=== PATIENT | female | born 2000 | race Caucasian/White ===

== ENCOUNTER 2022-09-24 12:29 | Outpatient (CLI) | payer OTHER | END 2022-09-24 12:30 | disposition home or self-care (01) | LOC: CSHULT 12:29 | PROVIDERS: ATTEND Family Medicine | DX: O09.892 Supervision of other high risk pregnancies, second trimester (principal); Z3A.19 19 weeks gestation of pregnancy | CPT/HCPCS: 76805 ==

== ENCOUNTER 2022-12-11 17:16 | Day surgery (SDC) | payer OTHER ==
[2022-12-11 18:05] VITALS: BMI 19.2
[2022-12-11] MEDS ORDERED: hydrALAZINE 20 MG/ML VIAL SLOW IVP PRN (21:04)
== END 2022-12-11 19:51 | disposition home or self-care (01) ==
LOC: CSHLD/OP 17:16
PROVIDERS: ATTEND Student in an Organized Health Care Education/Training Program
DX: O26.853 Spotting complicating pregnancy, third trimester (principal); Z3A.31 31 weeks gestation of pregnancy
CPT/HCPCS: 99283

== ENCOUNTER 2023-01-15 17:41 | Day surgery (SDC) | payer OTHER ==
[2023-01-15] MEDS ORDERED: Ondansetron PF 4 MG/2 ML Vial IVP PRN (17:56)
[2023-01-15] MEDS ORDERED: hydrALAZINE 20 MG/ML VIAL SLOW IVP PRN (17:56)
[2023-01-15] MEDS ORDERED: Lactated Ringer's 1,000 ML IV SCH (18:00)
[2023-01-15 18:02] VITALS: BMI 21.4
== END 2023-01-15 21:08 | disposition home or self-care (01) ==
LOC: CSHLD/OP 17:41
PROVIDERS: ATTEND Family Medicine
DX: O47.03 False labor before 37 completed weeks of gestation, third trimester (principal); O99.891 Other specified diseases and conditions complicating pregnancy; R19.7 Diarrhea, unspecified; O21.2 Late vomiting of pregnancy; D56.9 Thalassemia, unspecified; O99.013 Anemia complicating pregnancy, third trimester; O99.343 Other mental disorders complicating pregnancy, third trimester; F32.A Depression, unspecified; O99.613 Diseases of the digestive system complicating pregnancy, third trimester; A08.4 Viral intestinal infection, unspecified; Z3A.36 36 weeks gestation of pregnancy
CPT/HCPCS: J2405

== ENCOUNTER 2023-01-23 09:43 | Day surgery (SDC) | payer OTHER ==
[2023-01-23 10:21] VITALS: BMI 22.6
[2023-01-23] MEDS ORDERED: hydrALAZINE 20 MG/ML VIAL SLOW IVP PRN (10:36)
== END 2023-01-23 12:05 | disposition home or self-care (01) ==
LOC: CSHLD/OP 09:43
PROVIDERS: ATTEND Family Medicine
DX: O47.1 False labor at or after 37 completed weeks of gestation (principal); Z67.91 Unspecified blood type, Rh negative; O99.820 Streptococcus B carrier state complicating pregnancy; O35.2XX0 Maternal care for (suspected) hereditary disease in fetus, not applicable or unspecified; D56.1 Beta thalassemia; Z3A.37 37 weeks gestation of pregnancy
CPT/HCPCS: 87480; 87510; 87660

== ENCOUNTER 2023-01-31 22:15 | Inpatient (IN) | payer OTHER ==
[2023-01-31 22:56] VITALS: BMI 22.6
[2023-02-01] MEDS ORDERED: Tranexamic Acid 1,000 MG/10 ML VIAL IVP PRN (01:17)
[2023-02-01] MEDS ORDERED: Ondansetron PF 4 MG/2 ML Vial IVP PRN ×3 (01:17→14:58)
[2023-02-01] MEDS ORDERED: fentaNYL 50 mcg/mL 1 mL Vial SLOW IVP PRN (01:17)
[2023-02-01] MEDS ORDERED: Docusate 100 MG CAP PO PRN (01:17)
[2023-02-01] MEDS ORDERED: Acetaminophen 500 MG TAB PO PRN (01:17)
[2023-02-01] MEDS ORDERED: Zolpidem Tartrate 5 MG TAB PO PRN (01:17)
[2023-02-01] MEDS ORDERED: Lidocaine 1% (PF) 30 ML VIAL SC PRN (01:17)
[2023-02-01] MEDS ORDERED: Carboprost 250 MCG/ML AMP IM PRN (01:17)
[2023-02-01] MEDS ORDERED: Promethazine HCl 25 MG/ML VIAL IM PRN ×3 (01:17→14:58)
[2023-02-01] MEDS ORDERED: Diphenoxylate HCl/Atropine Tablet PO PRN (01:17)
[2023-02-01] MEDS ORDERED: Methylergonovine 0.2 MG/ML VIAL IM PRN (01:17)
[2023-02-01] MEDS ORDERED: hydrALAZINE 20 MG/ML VIAL SLOW IVP PRN ×2 (01:17→14:58)
[2023-02-01] MEDS ORDERED: Misoprostol 200 MCG TAB PR PRN (01:17)
[2023-02-01] MEDS ORDERED: Oxytocin 30 units/NS 500 ML 500 ML IV SCH (01:30)
[2023-02-01] MEDS ORDERED: Lactated Ringer's 1,000 ML IV SCH (01:30)
[2023-02-01] MEDS ORDERED: Penicillin G Potassium 5 MILL.UNITS in Sodium Chloride 0.9% 100 ML IVPB SCH (01:30)
[2023-02-01 01:59] LABS: Mean Corpuscular HGB CONC 30.4 g/dL (32.0-36.0); Mean Corpuscular Hemoglobin 19.2 pg (27.0-33.0); Mean Platelet Volume 10.4 fl (7.4-10.4); Platelet Count 265 10x3/uL (150-450); RBC Distribution Width 15.1 % (11.5-14.5); Red Blood Cell (RBC) Count 3.65 10x6/uL (3.90-5.03); White Blood Cell (WBC) Count 14.7 10x3/uL (3.5-10.5)
[2023-02-01] MEDS ORDERED: fentaNYL/Ropivacaine Epidural 100 ML ONE (02:22)
[2023-02-01 02:24] LABS: HBSAg Index 0.21 S/CO (0-0.99); Hep B Surf Ag - L&D Non-Reactive S/CO (NonReactive)
[2023-02-01 02:26] LABS: Syphilis Antibody Nonreactive (Nonreactive); Syphilis Antibody Index 0.08 S/CO (<1.00 Non-Reactive)
[2023-02-01] MEDS ORDERED: Acetaminophen 325 MG TAB PO PRN (03:34)
[2023-02-01] MEDS ORDERED: Naloxone HCl 0.4 mg/ml Vial IVP PRN ×2 (03:34)
[2023-02-01] MEDS ORDERED: ePHEDrine Sulfate 50 MG/10 ML VIAL SLOW IVP PRN (03:34)
[2023-02-01] MEDS ORDERED: Moisturizing Cream (Eucerin) 113 GM JAR TOP PRN (03:34)
[2023-02-01] MEDS ORDERED: Lactated Ringer's 500 ML IV PRN (03:34)
[2023-02-01] MEDS ORDERED: diphenhydrAMINE 50 MG/ML VIAL IVP PRN (03:34)
[2023-02-01] MEDS ORDERED: Communication Order-Pharmacy FS SCH (03:45)
[2023-02-01] MEDS ORDERED: fentaNYL 2 mcg/Ropivacaine 0.2% Epidural 100 ML CADD EPIDURAL SCH (03:45)
[2023-02-01] MEDS: Penicillin G 2.5 MILL.units 2.5 MILL.UNITS in Premix 1 BAG IVPB SCH ×3 (06:21→15:05)
[2023-02-01] MEDS ORDERED: Bisacodyl 10 MG SUPP PR PRN (14:58)
[2023-02-01] MEDS ORDERED: Benzocaine-Menthol 82.5 ML CAN TOP PRN (14:58)
[2023-02-01] MEDS ORDERED: Milk Of Magnesia 30 ML UDCUP PO PRN (14:58)
[2023-02-01] MEDS ORDERED: HYDROcodone/Acetaminophen 5/325 mg Tablet PO PRN (14:58)
[2023-02-01] MEDS ORDERED: Boostrix 0.5 ML (Tdap) VIAL (>/=7 yrs of age) IM ONE (14:58)
[2023-02-01] MEDS ORDERED: diphenhydrAMINE 25 MG CAP PO PRN (14:58)
[2023-02-01] MEDS ORDERED: Ibuprofen 800 MG TAB PO SCH (16:00)
[2023-02-01] MEDS: Ferrous Sulfate 325 MG TAB PO SCH (17:37)
[2023-02-01] MEDS ORDERED: Bupivacaine 0.25% HCL 30 ML VIAL ONE (19:05)
[2023-02-01] MEDS: Docusate 100 MG CAP PO SCH (20:35)
[2023-02-02] MEDS: Ibuprofen 800 MG TAB PO SCH ×2 (01:16→08:49)
[2023-02-02] MEDS: Ferrous Sulfate 325 MG TAB PO SCH (08:49)
[2023-02-02] MEDS: Docusate 100 MG CAP PO SCH (08:49)
[2023-02-02] MEDS ORDERED: Prenatal Vitamin 1 TAB PO SCH (09:00)
[2023-02-02 09:21] VITALS: BP 104/56; TEMP 97.7
== END 2023-02-02 12:00 | disposition home or self-care (01) | DRG 807 ==
LOC: CSHLD/OP 22:15 → CSHLD 02-01 00:43 → CSHPP 02-01 14:45
PROVIDERS: ADMIT Family Medicine; ATTEND Family Medicine
PROC: 10E0XZZ Delivery of Products of Conception, External Approach (ICD-10-PCS; principal; 2023-02-01)
PROC: 0KQM0ZZ Repair Perineum Muscle, Open Approach (ICD-10-PCS; 2023-02-01)
PROC: 10907ZC Drainage of Amniotic Fluid, Therapeutic from Products of Conception, Via Natural or Artificial Opening (ICD-10-PCS; 2023-02-01)
DX: O70.1 Second degree perineal laceration during delivery (principal); Z37.0 Single live birth; Z3A.38 38 weeks gestation of pregnancy
CPT/HCPCS: 36415; 51702; 85027; 85461; 86780; 86850; 86870; 86900; 86901; 86922; 87340; 90384; 96372; 99285; J2540; J3490; S0020

== ENCOUNTER 2023-10-31 22:59 | Emergency (ER) | payer OTHER | END 2023-11-01 00:42 | disposition home or self-care (01) | LOC: CSHERS 22:59 | DX: S66.911A Strain of unspecified muscle, fascia and tendon at wrist and hand level, right hand, initial encounter (principal); W22.8XXA Striking against or struck by other objects, initial encounter ==

== ENCOUNTER 2024-01-05 11:30 | Emergency (ER) | payer OTHER | END 2024-01-05 12:17 | disposition home or self-care (01) | LOC: CSHERS 11:30 | DX: H60.501 Unspecified acute noninfective otitis externa, right ear (principal) | CPT/HCPCS: 99282 ==

== ENCOUNTER 2025-03-19 13:17 | Emergency (ER) | payer OTHER, SELFPAY ==
[2025-03-19 14:42] LABS: #Basophils Less than 0.03 10x3/uL (0.0-0.2); #Eosinophils 0.26 10x3/uL (0.0-0.5); #Monocytes 0.64 10x3/uL (0.0-1.1); #Neutrophils 4.70 10x3/uL (1.5-8.4); %Basophils 0.2 % (0.0-2.0); %Eosinophils 3.2 % (0.0-6.0); %Lymphocytes 31.0 % (18.0-47.0); %Monocytes 7.8 % (0.0-10.0); %Neutrophils 57.6 % (40.0-75.0); Hematocrit 31.7 % (34.9-44.5); Hemoglobin 9.8 g/dL (12.0-15.5); Mean Corpuscular Hemoglobin 20.0 pg (27.0-33.0); Mean Corpuscular Volume 64.6 fL (81.6-98.3); Platelet Count 341 10x3/uL (150-450); Red Blood Cell (RBC) Count 4.91 10x6/uL (3.90-5.03); White Blood Cell (WBC) Count 8.17 10x3/uL (3.5-10.5)
== END 2025-03-19 15:00 | disposition home or self-care (01) ==
LOC: CSHERS 13:17
DX: D56.3 Thalassemia minor (principal); D63.8 Anemia in other chronic diseases classified elsewhere
CPT/HCPCS: 36415; 85025; 99284

== ENCOUNTER 2025-03-30 07:18 | Emergency (ER) | payer OTHER, SELFPAY | END 2025-03-30 09:00 | disposition home or self-care (01) | LOC: CSHERS 07:18 | DX: J20.9 Acute bronchitis, unspecified (principal) | CPT/HCPCS: 71046; 87428 ==